=== PATIENT | female | born 1960 | race Caucasian/White ===

== ENCOUNTER 2023-12-12 10:53 | Emergency (ER) | payer MEDICARE ==
[2023-12-12] MEDS: Ketorolac 30 MG/ML SDV IVPUSH ONE (11:50)
== END 2023-12-12 12:50 | disposition home or self-care (01) ==
LOC: JD.ED 10:53
DX: M54.32 Sciatica, left side (principal); Z88.0 Allergy status to penicillin; Z88.8 Allergy status to other drugs, medicaments and biological substances
CPT/HCPCS: 96374; 99284; J1885

== ENCOUNTER 2024-09-30 07:26 | Day surgery (SDC) | payer MEDICAID ==
[~2024-09-30 07:26] MED LIST: Sodium Chloride 0.9% 10 ML Syringe FLUSH PRN; Sodium Chloride 0.9% 10 ML Syringe FLUSH SCH
[2024-09-30] MEDS: Lactated Ringers 1,000 ML IV SCH (08:01)
[2024-09-30] MEDS ORDERED: Propofol 200 MG/20 ML SDV ONE ×2 (08:46→08:48)
== END 2024-09-30 10:30 | disposition home or self-care (01) ==
LOC: JD.SDS 07:26
PROVIDERS: ATTEND Surgery
DX: Z12.11 Encounter for screening for malignant neoplasm of colon (principal); D12.4 Benign neoplasm of descending colon; I10 Essential (primary) hypertension; F17.200 Nicotine dependence, unspecified, uncomplicated; Z88.1 Allergy status to other antibiotic agents; Z88.8 Allergy status to other drugs, medicaments and biological substances; Z79.899 Other long term (current) drug therapy
CPT/HCPCS: 45380; J2003; J2704; J7120; J7620; 00811; A9270-GY